=== PATIENT | male | born 1995 | race Caucasian/White ===

== ENCOUNTER 2017-02-19 18:11 | Emergency (ER) | payer OTHER ==
[2017-02-19] MEDS ORDERED: Lidocaine 1% with EPINEPHrine 1:100,000 50 ML MDV INJECT STA (18:36)
--- NOTE | 2017-02-19 18:52 | EDM.PDOC ---
ED HPI GENERAL MEDICAL PROBLEM - General Chief Complaint: Laceration Stated Complaint: CUT ON TOP OF HEAD Time Seen by Provider: 02/19/17 18:31 Source of Information: Reports: Patient, RN Notes Reviewed History Limitations: Reports: No Limitations - History of Present Illness INITIAL COMMENTS - FREE TEXT/NARRATIVE: 18.30 Here with significant other Chief complaint Head injury/laceration History of present illness 21-year-old male [employer], working on [address], taking down construction sign, 36 inch large plywood sign, Fell on his head, stunned him momentarily, felt groggy to rest in the afternoon. However he was able to complete his work shift and drive. It occurred 2:30 PM No nausea or vomiting No dizziness No headache apart from the wound Friend reports his behavior is normal Tetanus booster one year ago - Related Data Allergies Allergy/AdvReac Type Severity Reaction Status Date / Time No Known Allergies Allergy Verified 02/19/17 18:59 Home Meds: Home Meds NK [No Known Home Meds] 02/19/17 [History] Past Medical History - Past Health History Medical/Surgical History: Denies Medical/Surgical History ED ROS GENERAL - Review of Systems Review Of Systems: See Below Constitutional: Reports: No Symptoms HEENT: Reports: Other (Head wound) Respiratory: Reports: No Symptoms Cardiovascular: Reports: No Symptoms GI/Abdominal: Reports: No Symptoms Musculoskeletal: Reports: No Symptoms Skin: Reports: No Symptoms Neurological: Reports: Other (Feeling a little "groggy"). Denies: Headache, Paresthesia, Seizure, Syncope, Tremors, Difficulty Walking, Change in Speech, Gait Disturbance ED EXAM, SKIN/RASH Exam: See Below Exam Limited By: No Limitations General Appearance: Alert, No Apparent Distress, Other (Normal speech and breathing, normal behavior) Eye Exam: Bilateral Eye: EOMI, Normal Inspection Ears: Normal External Exam, Hearing Grossly Normal, Normal TMs Nose: Normal Inspection, Normal Mucosa Throat/Mouth: Normal Inspection Head: Other (Laceration 5 cm right parietal scalp) Neck: Normal Inspection, Supple, Non-Tender, Full Range of Motion Respiratory/Chest: No Respiratory Distress, No Accessory Muscle Use Cardiovascular: Normal Peripheral Pulses, Regular Rate, Rhythm Back Exam: Normal Inspection Extremities: Normal Inspection, Slow Capillary Refill Neurological: Alert, Oriented, No Motor/Sensory Deficits Psychiatric: Normal Affect, Normal Mood Skin: Warm, Dry Location, Skin: Head ED SKIN PROCEDURES - Laceration/Wound Repair Right Head Appearance: Subcutaneous Distal NVT: Neuro & Vascular Intact, No Tendon Injury Anesthetic Type: Local Local Anesthesia - Lidocaine (Xylocaine): 1% with EPI Local Anesthetic Volume: 3cc Skin Prep: Other (tap Water) Closed with: Sutures Suture Size: 4-0 Suture Type: Interrupted, Simple, Other (Chromic) # of Sutures: 5 Sterile Dressing Applied: None Tetanus Status Addressed: Yes Complications: No Complication Description: Procedure tolerated without difficulty Course - Vital Signs Last Recorded V/S: Last Vital Signs Temp 36.4 C 02/19/17 18:28 Pulse 71 02/19/17 18:28 Resp 19 02/19/17 18:28 BP 150/86 H 02/19/17 18:28 Pulse Ox 97 02/19/17 18:28 - Orders/Labs/Meds Meds: Medications Discontinued Medications Generic Name Dose Route Start Last Admin Trade Name Nestor PRN Reason Stop Dose Admin Lidocaine/Epinephrine 10 ml 02/19/17 18:36 02/19/17 19:02 Xylocaine 1% With Epinephrine 1:100,000 INJECT 02/19/17 18:37 10 ml ONETIME STA Administration - Re-Assessments/Exams Free Text/Narrative Re-Assessment/Exam: 02/19/17 19:32 21-year-old male with laceration to scalp from head injury No evidence of concussion or signs of intracranial bleed Wound repair Discharge with friend Departure - Departure Time of Disposition: 18:49 Disposition: DC/Tfer to Hospice - Home 49 Condition: Good Clinical Impression: Laceration of scalp without complication Qualifiers: Encounter type: initial encounter Qualified Code(s): S01.01XA - Laceration without foreign body of scalp, initial encounter - Discharge Information Instructions: Head Injury, Adult, [id number], Laceration Care, Adult, Easy-to -Read Referrals: PCP,None [Primary Care Provider] - Forms: ED Department Discharge Additional Instructions: You have 5 dissolving stitches that do not need to be removed Bathe as usual
== END 2017-02-19 19:13 | disposition hospice, home (50) ==
LOC: JP.ED 18:11
DX: S01.01XA Laceration without foreign body of scalp, initial encounter (principal); W20.8XXA Other cause of strike by thrown, projected or falling object, initial encounter; Y92.69 Other specified industrial and construction area as the place of occurrence of the external cause; Y99.0 Civilian activity done for income or pay
CPT/HCPCS: 12002; 99284-25